=== PATIENT | female | born 1945 | race Caucasian/White ===

== ENCOUNTER 2023-09-20 11:13 | Outpatient (AMB) | payer MEDICARE, OTHER, SELFPAY ==
[2023-09-20 11:30] VITALS: BP 128/72; PULSE 65; O2SAT 96; BMI 35.9
--- NOTE | 2023-09-20 11:30 | MHC.PC.OV ---
Vital Signs 09/20/23 11:30 Height 5 ft 3.78 in Weight 208 lb BMI 35.9 BP 128/72 Blood Pressure Location Lt brachial Position Sitting Pulse 65 Pulse Source Pulse Oximeter Pulse Oximetry (%) 96 Oxygen Delivery Method Room Air Intake Visit Reasons: EYE SURGEON est care Intake Note: Pt is here today for New patient visit. Pt states that she had colonoscopy done in 2014. Allergies No Known Allergies Allergy (Verified 09/20/23 11:33) Medication List - Last Reconciled 09/20/23 by Jennifer Cat MD apixaban (Eliquis) 5 mg PO BID citalopram 20 mg PO DAILY hydrochlorothiazide 50 mg PO QDAY metoprolol succinate ER 100 mg PO BID montelukast 10 mg PO DAILY Tobacco use date assessed: 09/20/23 Fall risk assessment: No Falls in past year Last assessed Fall Risk: 09/20/23 Dental Screening Dental Screen Date: 09/20/23 Did you have a dental visit in the last 12 months?: No Did you have a dental problem in the last 6 months where you did not have access to dental care?: No Was dental information given to patient?: Patient declined HPI EYE SURGEON est care HPI Details Pt presents for EYE SURGEON visit. PMH including HTN, A fib. 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 Patient complains of lower lip tremor worse in the stressful situation for 6 months. Patient started taking citalopram about a year ago after her family stressful event. She denies depression or anxiety. [facility] Family History Father Hypertension Mother No problems noted. Social History (Updated 09/20/23 @ 12:13 by Jennifer Cat MD) Household Members Other:: lives with , 3 children in [place], Housing: House Patient Tobacco Use Status: Never used Tobacco e-Cigarette/Vaping Use: Never Used Current occupational status: retired Cognitive needs: No Hearing needs: No Vision needs: Yes Questionnaire PHQ-9 Over the last 2 weeks, how often have you been bothered by any of the following problems? 1. Little interest or pleasure in doing things: not at all 2. Feeling down, depressed, or hopeless: not at all 3. Trouble falling or staying asleep, or sleeping too much: not at all 4. Feeling tired or having little energy: not at all 5. Poor appetite or overeating: not at all 6. Feeling bad about yourself - or that you are a failure or have let yourself or your family down: not at all 7. Trouble concentrating on things, such as reading the newspaper or watching television: not at all 8. Moving or speaking so slowly that other people could have noticed. Or the opposite - being so fidgety or restless that you have been moving around a lot more than usual: not at all 9. Thoughts that you would be better off or of hurting yourself in some way: not at all Total score: 0 Depression Screening Interpretation: Negative Depression Screening Done: Yes Source: Developed by Drs. New Greco, Kierra Dominguez, Kobe Ovalles and colleagues, with an educational ese from [employer]. Thrive Questionnaire Date Thrive assessed: 09/20/23 I am a: Patient What is your living situation today?: I have a steady place to live Within the past 12 months, did the food you bought not last and you didn't have the money to get more?: Never true Within the past 12 months, did you worry whether your food would run out before you got money to buy more?: Never true Do you have trouble paying for medicines?: No Do you have trouble getting transportation to medical appointments?: No Do you have trouble paying your heating and electricity bill?: No Do you have trouble taking care of your child, family member or friend?: No Do you have trouble with day-to-day activities such as bathing, preparing meals, shopping, managing finances, etc.?: No Are you currently unemployed and looking for a job?: No Are you interested in more education?: No Please select the resources that you would like help with: None AUDIT C Alcohol Use Questionnaire (AUDIT-C) 1. How often do you have a drink containing alcohol?: Never 3. How often do you have six or more drinks on one occasion?: Never Total Score: 0 CONNIE-7 AMB Questionnaire CONNIE-7 Date CONNIE - 7 assessed: 09/20/23 Feeling nervous, anxious, or on edge: 0 = Not at all Not being able to stop or control worryin = Not at all Worrying too much about different things: 0 = Not at all Trouble relaxin = Not at all Being so restless that it is hard to sit still: 0 = Not at all Becoming easily annoyed or irritable: 0 = Not at all Feeling afraid as if something awful might happen: 0 = Not at all Total CONNIE-7 score (0-4 normal; 5-9 mild; 10-14 moderate; 15-21 severe): 0 Source: Developed by Drs. New Greco, Kierra Dominguez, Kobe Ovalles and colleagues, with an educational ese from [employer]. Review of Systems Const All systems reviewed & are unremarkable except as noted in HPI and below Reports no additional complaints Eyes Reports no additional complaints ENT Reports no additional complaints Card Reports no additional complaints Resp Reports no additional complaints GI Reports no additional complaints Reports no additional complaints Musc Reports no additional complaints Physical exam (Primary Care) Vital Signs: Last Vital Signs Pulse 65 09/20/23 11:30 BP 128/72 09/20/23 11:30 Pulse Ox 96 09/20/23 11:30 Oxygen Delivery Method Room Air 09/20/23 11:30 BMI result Body Mass Index 35.9 Tobacco/Smoking Status: Tobacco use Status Tobacco use date assessed 09/20/23 09/20/23 11:40 Patient Tobacco Use Status Never used Tobacco 09/20/23 11:40 e-Cigarette/Vaping Use Never Used 09/20/23 11:40 PHQ-9: PHQ-9 Score PHQ-9: Total score 0 09/20/23 11:42 Depression Screening Interpretation: Negative Thrive Assessment: Date of Thrive Assessment Date Thrive assessed 09/20/23 09/20/23 11:42 Const General: no acute distress HENMT Head: Yes normal to inspection Ears: hearing grossly normal bilaterally General nose exam: Normal external nose present Face and sinus: Yes normal facial exam Mouth: Normal oral and palatal mucosa present Throat: Yes posterior oropharynx normal Eyes General: appearance normal, both eyes and all related structures Neck Neck: Yes no lymphadenopathy and Yes supple Resp Effort & Inspection: normal respiratory effort Auscultation: clear to auscultation bilaterally Cardio Rhythm: abnormal rhythm irregularly irregular Heart sounds: S1 normal heart sound present and S2 normal heart sound present GI Inspection: Yes normal to inspection Palpation (GI): Soft to palpation Percussion: Yes normal to percussion Auscultation: normal bowel sounds Assessment and Plan Assessment & Plan (1) A-fib: Comment: since 2019, f/u cardiology [employer] Code(s): I48.91 - Unspecified atrial fibrillation Plan: Continue Eliquis and metoprolol for rate control, obtain medical records from Cardiology (2) HTN (hypertension): Code(s): I10 - Essential (primary) hypertension Plan: Continue current medications, follow-up in 2 months (3) Tremor: Comment: Lower lip Code(s): R25.1 - Tremor, unspecified Plan: Patient will taper down citalopram if the tremor persist she will be referred to Neurology (4) Overweight: Code(s): E66.3 - Overweight Plan: Increase physical activity decrease caloric intake discussed with the patient. she will return for fasting blood Orders: Orders Complete Blood Count Auto Diff Today E66.3 - Overweight, I10 - Essential (primary) hypertension, I48.91 - Unspecified atrial fibrillation, R25.1 - Tremor, unspecified Vitamin D 25-OH Total Today E66.3 - Overweight, I10 - Essential (primary) hypertension, I48.91 - Unspecified atrial fibrillation, R25.1 - Tremor, unspecified Comprehensive Met. Panel Today E66.3 - Overweight, I10 - Essential (primary) hypertension, I48.91 - Unspecified atrial fibrillation, R25.1 - Tremor, unspecified Lipid Panel Today E66.3 - Overweight, I10 - Essential (primary) hypertension, I48.91 - Unspecified atrial fibrillation, R25.1 - Tremor, unspecified TSH reflex Free T4 Today E66.3 - Overweight, I10 - Essential (primary) hypertension, I48.91 - Unspecified atrial fibrillation, R25.1 - Tremor, unspecified Medications: New hydrochlorothiazide 50 mg PO QDAY 90 tabs 3RF metoprolol succinate ER 100 mg PO BID 180 tabs 3RF apixaban (Eliquis) 5 mg PO BID 180 tabs 3RF Coding Level of Care Code New Pt Level 4 (60222) Diagnoses A-fib I48.91 HTN (hypertension) I10 Tremor R25.1 Overweight E66.3
== END 2023-09-20 12:28 | disposition home or self-care (01) ==
PROVIDERS: PCP Internal Medicine; Visit Provider Internal Medicine
DX: I48.91 Unspecified atrial fibrillation (principal); I10 Essential (primary) hypertension; R25.1 Tremor, unspecified; E66.3 Overweight
CPT/HCPCS: 99204

== ENCOUNTER 2023-12-05 08:47 | Outpatient (REF) | payer MEDICARE, OTHER, SELFPAY ==
[2023-12-05 11:09] LABS: MANUAL DIFF FLAG NO
[2023-12-05 11:44] LABS: Basophils Percent Auto 0.8 % (0-2); Eosinophils Absolute Auto 0.2 X10*3/uL (0.0-0.4); Eosinophils Percent Auto 3.8 % (0-4); Hemoglobin 12.7 g/dl (12.0-16.0); Imm Gran Abs Auto 0.01 X10*3/uL (0.00-0.03); Imm Gran Pct Auto 0.3 % (0.0-0.4); Lymphocytes Absolute Auto 1.2 X10*3/uL (1.2-4.9); Lymphocytes Percent Auto 30.7 % (20-40); Mean Corpuscular Hemoglobin 27.9 pg (27.0-33.0); Mean Corpuscular Volume 90.1 fL (80.0-98.0); Monocytes Absolute Auto 0.5 X10*3/uL (0.1-1.2); Monocytes Percent Auto 11.4 % (2-11); Neutrophils Absolute Auto 2.1 x10*3/uL (2.0-8.3); Platelet Count 234 X10*3/uL (160-400); Red Blood Count 4.55 X10*6/uL (4.20-5.50); Red Cell Distribution Width 14.6 % (11.0-16.0); White Blood Count 3.9 X10*3/uL (4.8-10.8)
[2023-12-05 12:36] LABS: Alanine Aminotransferase 16 U/L (0-31); Albumin Level 4.1 g/dL (3.5-5.0); Alkaline Phosphatase 75 U/L (39-117); Anion Gap 13 (12-20); Aspartate Amino Transferase 22 U/L (5-31); Bilirubin Total 0.4 mg/dL (0.0-1.0); Blood Urea Nitrogen 16 mg/dL (9-16); Calcium 9.4 mg/dL (8.4-10.2); Carbon Dioxide 28 mmol/L (22-29); Chloride 104 mmol/L (96-108); Cholesterol 152 mg/dL (<200); Estimated Glomerular Filt Rate > 60; Glucose Random 93 mg/dL (60-115); HDL Cholesterol 50 mg/dL (>40); LDL Cholesterol Calculated 85 mg/dL (<100); Potassium 4.1 mmol/L (3.3-5.1); Sodium 141 mmol/L (135-145); TSH reflex Free T4 1.91 uIU/mL (0.32-4.0); Total Protein 7.4 g/dL (6.5-8.0); Triglycerides 85 mg/dL (<150); Vitamin D 25-OH Total 51.5 ng/mL (>30)
== END 2023-12-05 08:48 | disposition home or self-care (01) ==
LOC: HO.HMGCLDS 08:47
PROVIDERS: PCP Internal Medicine; Visit Provider Internal Medicine
DX: I10 Essential (primary) hypertension (principal); I48.91 Unspecified atrial fibrillation; R25.1 Tremor, unspecified; E66.3 Overweight
CPT/HCPCS: 36415; 80053; 80061; 82306; 84443; 85025

== ENCOUNTER 2023-12-07 09:30 | Outpatient (AMB) | payer MEDICARE, OTHER, SELFPAY ==
[2023-12-07 09:32] VITALS: BP 126/76; PULSE 77; O2SAT 96; BMI 35.9
--- NOTE | 2023-12-07 09:32 | MHC.PC.OV ---
Vital Signs 12/07/23 09:32 Height 5 ft 3.78 in Weight 208 lb BMI 35.9 BP 126/76 Blood Pressure Location Lt brachial Position Sitting Pulse 77 Pulse Source Pulse Oximeter Pulse Oximetry (%) 96 Oxygen Delivery Method Room Air Intake Visit Reasons: 2 Month follow up Intake Note: Pt is here today for 2 months follow up visit. Allergies citalopram Adverse Reaction (Intermediate, Verified 12/07/23 09:50) LIP TREMOR Medication List - Last Reconciled 12/07/23 by Jennifer Cat MD apixaban (Eliquis) 5 mg PO BID hydrochlorothiazide 50 mg PO QDAY metoprolol succinate ER 100 mg PO BID Tobacco use date assessed: 12/07/23 Fall risk assessment: No Falls in past year Last assessed Fall Risk: 12/07/23 HPI 2 Month follow up HPI Details PATIENT PRESENTS FOR THE FOLLOW-UP OF HYPERLIPIDEMIA AND AFIB. Lip tremor resolved after patient stopped citalopram. PFSH Family History Father Hypertension Mother No problems noted. Social History Household Members Other:: lives with , 3 children in [place], Housing: House Patient Tobacco Use Status: Never used Tobacco e-Cigarette/Vaping Use: Never Used Current occupational status: retired Cognitive needs: No Hearing needs: No Vision needs: Yes Questionnaire Thrive Questionnaire Date Thrive assessed: 09/20/23 CONNIE-7 AMB Questionnaire CONNIE-7 Date CONNIE - 7 assessed: 09/20/23 Source: Developed by Drs. New Greco, Kierra Dominguez, Kobe Ovalles and colleagues, with an educational ese from [employer]. Review of Systems Const All systems reviewed & are unremarkable except as noted in HPI and below Reports no additional complaints Eyes Reports no additional complaints ENT Reports no additional complaints Card Reports no additional complaints Resp Reports no additional complaints GI Reports no additional complaints Reports no additional complaints Physical exam (Primary Care) Vital Signs: Last Vital Signs Pulse 77 12/07/23 09:32 BP 126/76 12/07/23 09:32 Pulse Ox 96 12/07/23 09:32 Oxygen Delivery Method Room Air 12/07/23 09:32 BMI result Body Mass Index 35.9 Tobacco/Smoking Status: Tobacco use Status Tobacco use date assessed 12/07/23 12/07/23 09:36 Patient Tobacco Use Status Never used Tobacco 12/07/23 09:36 e-Cigarette/Vaping Use Never Used 12/07/23 09:36 Thrive Assessment: Date of Thrive Assessment Date Thrive assessed 09/20/23 12/07/23 09:36 Const General: no acute distress HENMT Head: Yes normal to inspection General nose exam: Normal external nose present Mouth: Normal oral and palatal mucosa present Eyes General: appearance normal, both eyes and all related structures Neck Neck: Yes no lymphadenopathy and Yes supple Resp Effort & Inspection: normal respiratory effort Auscultation: clear to auscultation bilaterally Cardio Rhythm: abnormal rhythm irregularly irregular Heart sounds: S1 normal heart sound present and S2 normal heart sound present GI Inspection: Yes normal to inspection Palpation (GI): Soft to palpation Percussion: Yes normal to percussion Assessment and Plan Assessment & Plan (1) Tremor: Comment: Lower lip, secondary to citalopram Code(s): R25.1 - Tremor, unspecified (2) A-fib: Comment: 2020, f/u cardiology [place], Echo 01/06 nl EF, mild-mod TR, mildly elevated pulmonary pressure Code(s): I48.91 - Unspecified atrial fibrillation Plan: EKG showed AFib with heart rate of [address]-T changes. Will obtain 3 day Holter to assess rate control and a sleep study for obstructive sleep. Follow-up in 3 months (3) HTN (hypertension): Code(s): I10 - Essential (primary) hypertension Plan: Continue current medications (4) Sleep apnea: Comment: Witnessed sleep apnea Code(s): G47.30 - Sleep apnea, unspecified Plan: Check sleep study Orders: Orders RT home sleep study Today G47.30 - Sleep apnea, unspecified, I48.91 - Unspecified atrial fibrillation ECG 3 day holter monitor Today I48.91 - Unspecified atrial fibrillation Medications: Refilled hydrochlorothiazide 50 mg PO QDAY 90 tabs 3RF apixaban (Eliquis) 5 mg PO BID 180 tabs 3RF metoprolol succinate ER 100 mg PO BID 180 tabs 3RF Coding Level of Care Code Est Pt Level 4 (87331) Diagnoses Tremor R25.1 A-fib I48.91 HTN (hypertension) I10 Sleep apnea G47.30
== END 2023-12-07 10:06 | disposition home or self-care (01) ==
PROVIDERS: PCP Internal Medicine; Visit Provider Internal Medicine
DX: R25.1 Tremor, unspecified (principal); I48.91 Unspecified atrial fibrillation; I10 Essential (primary) hypertension; G47.30 Sleep apnea, unspecified
CPT/HCPCS: 99214

== ENCOUNTER 2024-02-22 11:54 | Outpatient (AMB) | payer MEDICARE, OTHER, SELFPAY ==
--- NOTE | 2024-02-22 11:55 | MHC.PC.OV ---
Vital Signs 02/22/24 11:56 Height 5 ft 3.78 in Weight 204 lb BMI 35.3 BP 120/76 Blood Pressure Location Lt brachial Position Sitting Pulse 84 Pulse Source Pulse Oximeter Pulse Oximetry (%) 96 Oxygen Delivery Method Room Air Intake Visit Reasons: 3M F/U Intake Note: Pt is here today for 3 months follow up visit. Allergies citalopram Adverse Reaction (Intermediate, Verified 02/22/24 11:58) LIP TREMOR Medication List - Last Reconciled 02/22/24 by Jennifer Cat MD apixaban (Eliquis) 5 mg PO BID hydrochlorothiazide 50 mg PO QDAY metoprolol succinate ER 100 mg PO BID Tobacco use date assessed: 02/22/24 Dental Screening Dental Screen Date: 09/20/23 HPI 3M F/U HPI Details Patient presents for the follow-up of hypertension and paroxysmal AFib rate controlled on metoprolol. Patient has been physically active walking daily denies chest pain shortness of breath or palpitations. PFSH Family History Father Hypertension Mother No problems noted. Social History Household Members Other:: lives with , 3 children in [place], Housing: House Patient Tobacco Use Status: Never used Tobacco e-Cigarette/Vaping Use: Never Used service: No Current occupational status: retired Cognitive needs: No Hearing needs: No Vision needs: Yes Questionnaire Thrive Questionnaire Date Thrive assessed: 09/20/23 CONNIE-7 AMB Questionnaire CONNIE-7 Date CONNIE - 7 assessed: 09/20/23 Source: Developed by Drs. New Greco, Kierra Dominguez, Kobe Ovalles and colleagues, with an educational ese from [employer] Review of Systems Const All systems reviewed & are unremarkable except as noted in HPI and below Eyes Reports no additional complaints ENT Reports no additional complaints Card Reports no additional complaints Resp Reports no additional complaints GI Reports no additional complaints Reports no additional complaints Physical exam (Primary Care) Vital Signs: Last Vital Signs Pulse 84 02/22/24 11:56 BP 120/76 02/22/24 11:56 Pulse Ox 96 02/22/24 11:56 Oxygen Delivery Method Room Air 02/22/24 11:56 BMI result Body Mass Index 35.3 Tobacco/Smoking Status: Tobacco use Status Tobacco use date assessed 02/22/24 02/22/24 12:00 Patient Tobacco Use Status Never used Tobacco 02/22/24 12:00 e-Cigarette/Vaping Use Never Used 02/22/24 11:57 Thrive Assessment: Date of Thrive Assessment Date Thrive assessed 09/20/23 02/22/24 11:57 Const General: no acute distress HENMT Head: Yes normal to inspection Face and sinus: Yes normal facial exam Throat: Yes posterior oropharynx normal Neck Neck: Yes supple Resp Effort & Inspection: normal respiratory effort Auscultation: clear to auscultation bilaterally Cardio Rhythm: regular rhythm Heart sounds: S1 normal heart sound present and S2 normal heart sound present GI Inspection: Yes normal to inspection Palpation (GI): Soft to palpation Percussion: Yes normal to percussion Auscultation: normal bowel sounds Assessment and Plan Assessment & Plan (1) HTN (hypertension): Code(s): I10 - Essential (primary) hypertension Plan: Continue current medications (2) A-fib: Comment: 2019, f/u cardiology [place], Echo 01/06 nl EF, mild-mod TR, mildly elevated pulmonary pressure Code(s): I48.91 - Unspecified atrial fibrillation Plan: Continue Eliquis and metoprolol for rate control. Patient is an waiting for an appointment for sleep studies to evaluate for obstructive sleep apnea Orders: Orders Comprehensive [place]. Panel Fast 6 Months I10 - Essential (primary) hypertension, I48.91 - Unspecified atrial fibrillation Complete Blood Count Auto Diff 6 Months I10 - Essential (primary) hypertension, I48.91 - Unspecified atrial fibrillation Coding Level of Care Code Est Pt Level 4 (89317) Diagnoses HTN (hypertension) I10 A-fib I48.91
[2024-02-22 11:56] VITALS: BP 120/76; PULSE 84; O2SAT 96; BMI 35.3
== END 2024-02-22 13:52 | disposition home or self-care (01) ==
PROVIDERS: PCP Internal Medicine; Visit Provider Internal Medicine
DX: I10 Essential (primary) hypertension (principal); I48.91 Unspecified atrial fibrillation
CPT/HCPCS: 99214

== ENCOUNTER 2024-08-20 09:10 | Outpatient (REF) | payer MEDICARE, OTHER, SELFPAY ==
[2024-08-20 10:19] LABS: MANUAL DIFF FLAG NO
[2024-08-20 10:26] LABS: Eosinophils Absolute Auto 0.2 X10*3/uL (0.0-0.4); Eosinophils Percent Auto 4.3 % (0-4); Hematocrit 41.9 % (37.0-47.0); Hemoglobin 13.3 g/dl (12.0-16.0); Imm Gran Abs Auto 0.01 X10*3/uL (0.00-0.03); Imm Gran Pct Auto 0.2 % (0.0-0.4); Lymphocytes Absolute Auto 1.2 X10*3/uL (1.2-4.9); Lymphocytes Percent Auto 28.6 % (20-40); Mean Corpuscular HGB Conc 31.7 g/dl (31.0-35.0); Mean Corpuscular Hemoglobin 29.1 pg (27.0-33.0); Mean Corpuscular Volume 91.7 fL (80.0-98.0); Mean Platelet Volume 10.6 fL (9.4-12.3); Monocytes Absolute Auto 0.5 X10*3/uL (0.1-1.2); Monocytes Percent Auto 11.9 % (2-11); Neutrophils Absolute Auto 2.3 x10*3/uL (2.0-8.3); Platelet Count 238 X10*3/uL (160-400); Red Blood Count 4.57 X10*6/uL (4.20-5.50); Red Cell Distribution Width 14.1 % (11.0-16.0); White Blood Count 4.2 X10*3/uL (4.8-10.8)
[2024-08-20 11:16] LABS: Alanine Aminotransferase 16 U/L (0-31); Albumin Level 4.2 g/dL (3.5-5.0); Alkaline Phosphatase 77 U/L (39-117); Anion Gap 13 (12-20); Aspartate Amino Transferase 24 U/L (5-31); Bilirubin Total 0.4 mg/dL (0.0-1.0); Blood Urea Nitrogen 21 mg/dL (9-16); Calcium 9.8 mg/dL (8.4-10.2); Carbon Dioxide 29 mmol/L (22-29); Chloride 104 mmol/L (96-108); Estimated Glomerular Filt Rate > 60; Glucose Fasting 94 mg/dL (60-99); Potassium 3.9 mmol/L (3.3-5.1); Sodium 142 mmol/L (135-145); Total Protein 7.3 g/dL (6.5-8.0)
== END 2024-08-20 09:11 | disposition home or self-care (01) ==
LOC: HO.HMGCLDS 09:10
PROVIDERS: PCP Internal Medicine; Visit Provider Internal Medicine
DX: I10 Essential (primary) hypertension (principal); I48.91 Unspecified atrial fibrillation
CPT/HCPCS: 36415; 80053; 85025

== ENCOUNTER 2024-08-25 09:53 | Outpatient (AMB) | payer MEDICARE, OTHER, SELFPAY ==
[2024-08-25 10:11] VITALS: BP 124/78; PULSE 82; O2SAT 100; BMI 37.2
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
== END 2024-08-25 10:57 | disposition home or self-care (01) ==
PROVIDERS: PCP Internal Medicine; Visit Provider Internal Medicine
DX: I48.91 Unspecified atrial fibrillation (principal); I10 Essential (primary) hypertension; T30.0 Burn of unspecified body region, unspecified degree; X10.2XXA Contact with fats and cooking oils, initial encounter

== ENCOUNTER → 2024-08-25 09:53 | Outpatient (BNVA) | payer MEDICARE, OTHER, SELFPAY | PROVIDERS: PCP Internal Medicine; Visit Provider Internal Medicine | DX: I48.91 Unspecified atrial fibrillation (principal); I10 Essential (primary) hypertension; T30.0 Burn of unspecified body region, unspecified degree; X10.2XXD Contact with fats and cooking oils, subsequent encounter | CPT/HCPCS: 99212 ==

== ENCOUNTER 2025-02-19 08:59 | Outpatient (REF) | payer MEDICARE, OTHER, SELFPAY ==
[2025-02-19 10:09] LABS: MANUAL DIFF FLAG NO
[2025-02-19 10:43] LABS: Basophils Percent Auto 0.8 % (0-2); Eosinophils Absolute Auto 0.1 X10*3/uL (0.0-0.4); Eosinophils Percent Auto 2.7 % (0-4); Hemoglobin 12.1 g/dl (12.0-16.0); Imm Gran Abs Auto 0.01 X10*3/uL (0.00-0.03); Imm Gran Pct Auto 0.3 % (0.0-0.4); Lymphocytes Absolute Auto 1.1 X10*3/uL (1.2-4.9); Lymphocytes Percent Auto 29.2 % (20-40); Mean Corpuscular HGB Conc 32.7 g/dl (31.0-35.0); Mean Corpuscular Hemoglobin 28.9 pg (27.0-33.0); Mean Corpuscular Volume 88.5 fL (80.0-98.0); Mean Platelet Volume 10.6 fL (9.4-12.3); Monocytes Absolute Auto 0.5 X10*3/uL (0.1-1.2); Monocytes Percent Auto 12.8 % (2-11); Neutrophils Percent Auto 54.2 % (45-73); Platelet Count 227 X10*3/uL (160-400); Red Blood Count 4.18 X10*6/uL (4.20-5.50); Red Cell Distribution Width 14.4 % (11.0-16.0); White Blood Count 3.7 X10*3/uL (4.8-10.8)
[2025-02-19 15:00] LABS: Alanine Aminotransferase 21 U/L (0-31); Albumin Level 4.2 g/dL (3.5-5.0); Alkaline Phosphatase 68 U/L (39-117); Anion Gap 11 (12-20); Aspartate Amino Transferase 29 U/L (5-31); Bilirubin Total 0.6 mg/dL (0.0-1.0); Blood Urea Nitrogen 22 mg/dL (9-16); Calcium 9.1 mg/dL (8.4-10.2); Carbon Dioxide 31 mmol/L (22-29); Chloride 103 mmol/L (96-108); Cholesterol 154 mg/dL (<200); Estimated Glomerular Filt Rate 58; Glucose Fasting 99 mg/dL (60-99); HDL Cholesterol 49 mg/dL (>40); LDL Cholesterol Calculated 91 mg/dL (<100); Potassium 3.7 mmol/L (3.3-5.1); Sodium 141 mmol/L (135-145); Triglycerides 73 mg/dL (<150)
[2025-02-19 15:18] LABS: TSH reflex Free T4 1.66 uIU/mL (0.32-4.0)
== END 2025-02-19 09:00 | disposition home or self-care (01) ==
LOC: HO.HMGCLDS 08:59
PROVIDERS: PCP Internal Medicine; Visit Provider Internal Medicine
DX: I48.91 Unspecified atrial fibrillation (principal); I10 Essential (primary) hypertension
CPT/HCPCS: 36415; 80053; 80061; 84443; 85025

== ENCOUNTER 2025-02-24 09:56 | Outpatient (AMB) | payer MEDICARE, OTHER, SELFPAY ==
[2025-02-24 10:00] VITALS: BP 122/76; PULSE 79; RESP 20; TEMP 36.4; O2SAT 98; BMI 36.6
--- NOTE | 2025-02-24 10:00 | A.OFFPC_ITS ---
Vital Signs 02/24/25 10:00 Height 5 ft 3.78 in Weight 212 lb BMI 36.6 BP 122/76 Blood Pressure Location Lt brachial Position Sitting Respiration 20 Pulse 79 Pulse Source Pulse Oximeter Temp 97.6 F Temp Source Oral Pulse Oximetry (%) 98 Oxygen Delivery Method Room Air Intake Visit Reasons: 6 months f/up Intake Note: Pt is here today for 6 months follow up visit. Allergies citalopram Adverse Reaction (Intermediate, Verified 02/24/25 10:02) LIP TREMOR Medication List - Last Reconciled 02/24/25 by Jennifer Cat MD apixaban (Eliquis) 5 mg PO BID hydrochlorothiazide 50 mg PO QDAY metoprolol succinate ER 100 mg PO BID Tobacco use date assessed: 02/24/25 Fall risk assessment: No Falls in past year Last assessed Fall Risk: 02/24/25 Dental Screening Dental Screen Date: 02/24/25 Did you have a dental visit in the last 12 months?: No Did you have a dental problem in the last 6 months where you did not have access to dental care?: No Was dental information given to patient?: Patient declined HPI 6 months f/up HPI Details Pt presents for A fib, HTN, hyperlipid, stable on meds. [facility] Medical History (Updated 02/24/25 @ 13:57 by Jennifer Cat MD) A-fib HTN (hypertension) Hyperlipidemia Surgical History (Updated 02/24/25 @ 10:05 by YURI Chowdhury) No pertinent past surgical history Family History Father Hypertension Mother No problems noted. Social History Household Members Other:: lives with , 3 children in [place], Housing: House Patient Tobacco Use Status: Never used Tobacco e-Cigarette/Vaping Use: Never Used service: No Current occupational status: retired Cognitive needs: No Hearing needs: No Vision needs: Yes Questionnaire PHQ-9 Over the last 2 weeks, how often have you been bothered by any of the following problems? 1. Little interest or pleasure in doing things: not at all 2. Feeling down, depressed, or hopeless: not at all 3. Trouble falling or staying asleep, or sleeping too much: not at all 4. Feeling tired or having little energy: not at all 5. Poor appetite or overeating: not at all 6. Feeling bad about yourself - or that you are a failure or have let yourself or your family down: not at all 7. Trouble concentrating on things, such as reading the newspaper or watching television: not at all 8. Moving or speaking so slowly that other people could have noticed. Or the opposite - being so fidgety or restless that you have been moving around a lot more than usual: not at all 9. Thoughts that you would be better off or of hurting yourself in some way: not at all Total score: 0 Depression Screening Interpretation: Negative Depression Screening Done: Yes 97671 - PHQ-9 Billing: Yes Source: Developed by Drs. New Greco, Kierra Dominguez, Kobe Ovalles and colleagues, with an educational ese from [employer]. Thrive Questionnaire Date Thrive assessed: 02/24/25 I am a: Patient What is your living situation today?: I have a steady place to live Within the past 12 months, did the food you bought not last and you didn't have the money to get more?: Never true Within the past 12 months, did you worry whether your food would run out before you got money to buy more?: Never true Do you have trouble paying for medicines?: No Do you have trouble getting transportation to medical appointments?: No Do you have trouble paying your heating and electricity bill?: No Do you have trouble taking care of your child, family member or friend?: No Do you have trouble with day-to-day activities such as bathing, preparing meals, shopping, managing finances, etc.?: No Are you currently unemployed and looking for a job?: No Are you interested in more education?: No Please select the resources that you would like help with: None THRIVE Score: 0 AUDIT C Alcohol Use Questionnaire (AUDIT-C) 1. How often do you have a drink containing alcohol?: Never 3. How often do you have six or more drinks on one occasion?: Never Total Score: 0 CONNIE-7 AMB Questionnaire CONNIE-7 Date CONNIE - 7 assessed: 02/24/25 Feeling nervous, anxious, or on edge: 0 = Not at all Not being able to stop or control worryin = Not at all Worrying too much about different things: 0 = Not at all Trouble relaxin = Not at all Being so restless that it is hard to sit still: 0 = Not at all Becoming easily annoyed or irritable: 0 = Not at all Feeling afraid as if something awful might happen: 0 = Not at all Total CONNIE-7 score (0-4 normal; 5-9 mild; 10-14 moderate; 15-21 severe): 0 Source: Developed by Drs. New Greco, Kierra Dominguez, Kobe Ovalles and colleagues, with an educational ese from [employer]. CONNIE-7 Assessment Billing CONNIE-7 Assessment Tool: CONNIE-7 Assessment 02957 Review of Systems Const All systems reviewed & are unremarkable except as noted in HPI and below Eyes Reports no additional complaints ENT Reports no additional complaints Card Reports no additional complaints Resp Reports no additional complaints GI Reports no additional complaints Reports no additional complaints Physical exam (Primary Care) Vital Signs: Last Vital Signs Temp 97.6 F 02/24/25 10:00 Pulse 79 02/24/25 10:00 Resp 20 02/24/25 10:00 BP 122/76 02/24/25 10:00 Pulse Ox 98 02/24/25 10:00 Oxygen Delivery Method Room Air 02/24/25 10:00 BMI result Body Mass Index 36.6 Tobacco/Smoking Status: Tobacco use Status Tobacco use date assessed 02/24/25 02/24/25 10:08 Patient Tobacco Use Status Never used Tobacco 02/24/25 10:01 e-Cigarette/Vaping Use Never Used 02/24/25 10:01 PHQ-9: PHQ-9 Score PHQ-9: Total score 0 02/24/25 10:28 Depression Screening Interpretation: Negative Thrive Assessment: Date of Thrive Assessment Date Thrive assessed 02/24/25 02/24/25 10:08 Const General: no acute distress HENMT Ears: hearing grossly normal bilaterally Mouth: Normal oral and palatal mucosa present Eyes General: appearance normal, both eyes and all related structures Neck Neck: Yes no lymphadenopathy and Yes supple Resp Effort & Inspection: normal respiratory effort Auscultation: clear to auscultation bilaterally Cardio Rhythm: regular rhythm Heart sounds: S1 normal heart sound present and S2 normal heart sound present GI Inspection: Yes normal to inspection Palpation (GI): Soft to palpation Coding Level of Care Code Est Pt Level 4 (74619) Diagnoses A-fib I48.91 HTN (hypertension) I10 Hyperlipidemia E78.5 Additional Codes CONNIE-7 Assessment Billing - CONNIE-7 Assessment Tool: CONNIE-7 Assessment 77031 ([id number]) PHQ-9 - 50983 - PHQ-9 Billing: Yes ([id number]) Assessment & Plan Assessment & Plan (1) A-fib: Comment: 2019, f/u cardiology [place], Echo 01/06 nl EF, mild-mod TR, mildly elevated pulmonary pressure Code(s): I48.91 - Unspecified atrial fibrillation Category: Medical Plan: cont meds, f/u with cardio (2) HTN (hypertension): Code(s): I10 - Essential (primary) hypertension Category: Medical Plan: cont meds (3) Hyperlipidemia: Code(s): E78.5 - Hyperlipidemia, unspecified Category: Medical Plan: cont statin Orders: Orders Comprehensive [place]. Panel Fast 6 Months E78.5 - Hyperlipidemia, unspecified, I10 - Essential (primary) hypertension, I48.91 - Unspecified atrial fibrillation Complete Blood Count Auto Diff 6 Months E78.5 - Hyperlipidemia, unspecified, I10 - Essential (primary) hypertension, I48.91 - Unspecified atrial fibrillation Medications: Refilled metoprolol succinate ER 100 mg PO BID 180 tabs 3RF apixaban (Eliquis) 5 mg PO BID 180 tabs 3RF hydrochlorothiazide 50 mg PO QDAY 90 tabs 3RF
== END 2025-02-24 10:34 | disposition home or self-care (01) ==
LOC: HO.HMCC 09:56
PROVIDERS: PCP Internal Medicine; Visit Provider Internal Medicine
DX: I48.91 Unspecified atrial fibrillation (principal); I10 Essential (primary) hypertension; E78.5 Hyperlipidemia, unspecified

== ENCOUNTER → 2025-02-24 09:56 | Outpatient (BNVA) | payer MEDICARE, OTHER, SELFPAY | PROVIDERS: PCP Internal Medicine; Visit Provider Internal Medicine | DX: I48.91 Unspecified atrial fibrillation (principal); I10 Essential (primary) hypertension; E78.5 Hyperlipidemia, unspecified | CPT/HCPCS: 96127; 99212 ==

== ENCOUNTER 2025-08-27 08:49 | Outpatient (REF) | payer MEDICARE, OTHER, SELFPAY ==
[2025-08-27 10:20] LABS: MANUAL DIFF FLAG NO
[2025-08-27 10:27] LABS: Hematocrit 39.8 % (37.0-47.0); Hemoglobin 12.6 g/dl (12.0-16.0); Imm Gran Abs Auto 0.02 X10*3/uL (0.00-0.03); Imm Gran Pct Auto 0.5 % (0.0-0.4); Lymphocytes Absolute Auto 1.3 X10*3/uL (1.2-4.9); Mean Corpuscular HGB Conc 31.7 g/dl (31.0-35.0); Mean Corpuscular Hemoglobin 29.2 pg (27.0-33.0); Mean Corpuscular Volume 92.3 fL (80.0-98.0); NRBC Abs Auto 0.000 X10*3/uL (0.0-0.012); NRBC Pct Auto 0.0 /100WBC (0.0-0.2); Platelet Count 220 X10*3/uL (160-400); Red Blood Count 4.31 X10*6/uL (4.20-5.50); White Blood Count 4.1 X10*3/uL (4.8-10.8)
[2025-08-27 11:09] LABS: Alanine Aminotransferase 21 U/L (0-31); Albumin Level 4.3 g/dL (3.5-5.0); Alkaline Phosphatase 62 U/L (39-117); Anion Gap 9 (12-20); Aspartate Amino Transferase 26 U/L (5-31); Blood Urea Nitrogen 20 mg/dL (9-16); Calcium 8.7 mg/dL (8.4-10.2); Carbon Dioxide 30 mmol/L (22-29); Chloride 106 mmol/L (96-108); Estimated Glomerular Filt Rate > 60; Potassium 4.0 mmol/L (3.3-5.1); Sodium 141 mmol/L (135-145); Total Protein 7.0 g/dL (6.5-8.0)
== END 2025-08-27 08:50 ==
LOC: HO.HMGCLDS 08:49
PROVIDERS: PCP Internal Medicine; Visit Provider Internal Medicine
DX: I10 Essential (primary) hypertension (principal); E78.5 Hyperlipidemia, unspecified; I48.91 Unspecified atrial fibrillation
CPT/HCPCS: 36415; 80053; 85025

== ENCOUNTER 2025-08-31 09:42 | Outpatient (AMB) | payer MEDICARE, OTHER, SELFPAY ==
[2025-08-31 09:48] VITALS: BP 120/74; PULSE 93; RESP 18; TEMP 36.4; O2SAT 98; BMI 36.1
--- NOTE | 2025-08-31 09:48 | MHC.PC.OV ---
Vital Signs 08/31/25 09:48 Height 5 ft 3.78 in Weight 209 lb BMI 36.1 BP 120/74 Blood Pressure Location Lt brachial Position Sitting Respiration 18 Pulse 93 Pulse Source Pulse Oximeter Temp 97.5 F Temp Source Oral Pulse Oximetry (%) 98 Oxygen Delivery Method Room Air Intake Visit Reasons: 6 months f/up Intake Note: Pt is here today for 6 months follow up visit. Allergies citalopram Adverse Reaction (Intermediate, Verified 08/31/25 09:55) LIP TREMOR Medication List - Last Reconciled 08/31/25 by Jennifer Cat MD apixaban (Eliquis) 5 mg PO BID hydrochlorothiazide 50 mg PO QDAY metoprolol succinate ER 100 mg PO BID Tobacco use date assessed: 08/31/25 Fall risk assessment: No Falls in past year Last assessed Fall Risk: 08/31/25 Dental Screening Dental Screen Date: 02/24/25 HPI 6 months f/up HPI Details Pt presents for f/u HTN and hyperlipid, stable on meds. A fib is rate controlled on Metoprolol and anticoagulated on Eliquis. PFSH Medical History A-fib HTN (hypertension) Hyperlipidemia Surgical History No pertinent past surgical history Family History Father Hypertension Mother No problems noted. Social History Household Members Other:: lives with , 3 children in [place], Housing: House Patient Tobacco Use Status: Never used Tobacco e-Cigarette/Vaping Use: Never Used service: No Current occupational status: retired Cognitive needs: No Hearing needs: No Vision needs: Yes Questionnaire Thrive Questionnaire Date Thrive assessed: 02/24/25 CONNIE-7 AMB Questionnaire CONNIE-7 Date CONNIE - 7 assessed: 02/24/25 Source: Developed by Drs. New Greco, Kierra Dominguez, Kobe Ovalles and colleagues, with an educational ese from [employer] Review of Systems Const All systems reviewed & are unremarkable except as noted in HPI and below Eyes Reports no additional complaints ENT Reports no additional complaints Card Reports no additional complaints Resp Reports no additional complaints GI Reports no additional complaints Reports no additional complaints Physical exam (Primary Care) Vital Signs: Last Vital Signs Temp 97.5 F 08/31/25 09:48 Pulse 93 08/31/25 09:48 Resp 18 08/31/25 09:48 BP 120/74 08/31/25 09:48 Pulse Ox 98 08/31/25 09:48 Oxygen Delivery Method Room Air 08/31/25 09:48 BMI result Body Mass Index 36.1 Tobacco/Smoking Status: Tobacco use Status Tobacco use date assessed 08/31/25 08/31/25 09:57 Patient Tobacco Use Status Never used Tobacco 08/31/25 09:49 e-Cigarette/Vaping Use Never Used 08/31/25 09:49 Thrive Assessment: Date of Thrive Assessment Date Thrive assessed 02/24/25 08/31/25 09:49 Const General: no acute distress HENMT Head: Yes normal to inspection Face and sinus: Yes normal facial exam Eyes General: appearance normal, both eyes and all related structures Neck Neck: Yes no lymphadenopathy and Yes supple Resp Effort & Inspection: normal respiratory effort Auscultation: clear to auscultation bilaterally Cardio Rhythm: abnormal rhythm irregularly irregular and regularly irregular Heart sounds: S1 normal heart sound present GI Inspection: Yes normal to inspection Palpation (GI): Soft to palpation Coding Level of Care Code Est Pt Level 4 (30166) Diagnoses A-fib I48.91 HTN (hypertension) I10 Hyperlipidemia E78.5 Assessment & Plan Assessment & Plan (1) A-fib: Comment: f/u cardiology [place], Echo 01/06 nl EF, mild-mod TR, mildly elevated pulmonary pressure Code(s): I48.91 - Unspecified atrial fibrillation Category: Medical Plan: Continue current medication follow-up with Cardiology (2) HTN (hypertension): Code(s): I10 - Essential (primary) hypertension Category: Medical Plan: Continue metoprolol (3) Hyperlipidemia: Code(s): E78.5 - Hyperlipidemia, unspecified Category: Medical Plan: Continue statin follow-up in 6 months with a fasting labs before Orders: Orders Comprehensive [place]. Panel Fast 6 Months E55.9 - Vitamin D deficiency, unspecified, E78.5 - Hyperlipidemia, unspecified, I10 - Essential (primary) hypertension, I48.91 - Unspecified atrial fibrillation Complete Blood Count Auto Diff 6 Months E55.9 - Vitamin D deficiency, unspecified, E78.5 - Hyperlipidemia, unspecified, I10 - Essential (primary) hypertension, I48.91 - Unspecified atrial fibrillation TSH reflex Free T4 6 Months E55.9 - Vitamin D deficiency, unspecified, E78.5 - Hyperlipidemia, unspecified, I10 - Essential (primary) hypertension, I48.91 - Unspecified atrial fibrillation Lipid Panel 6 Months E55.9 - Vitamin D deficiency, unspecified, E78.5 - Hyperlipidemia, unspecified, I10 - Essential (primary) hypertension, I48.91 - Unspecified atrial fibrillation Vitamin D 25-OH Total 6 Months E55.9 - Vitamin D deficiency, unspecified, E78.5 - Hyperlipidemia, unspecified, I10 - Essential (primary) hypertension, I48.91 - Unspecified atrial fibrillation
== END 2025-08-31 16:49 | disposition home or self-care (01) ==
LOC: HO.HMCC 09:42
PROVIDERS: PCP Internal Medicine; Visit Provider Internal Medicine
DX: I48.91 Unspecified atrial fibrillation (principal); I10 Essential (primary) hypertension; E78.5 Hyperlipidemia, unspecified

== ENCOUNTER → 2025-08-31 09:42 | Outpatient (BNVA) | payer MEDICARE, OTHER, SELFPAY | PROVIDERS: PCP Internal Medicine; Visit Provider Internal Medicine | DX: I10 Essential (primary) hypertension (principal); I48.91 Unspecified atrial fibrillation; E78.5 Hyperlipidemia, unspecified; Z79.899 Other long term (current) drug therapy | CPT/HCPCS: 99212 ==